=== PATIENT | male | born 1960 | race Caucasian/White ===

== ENCOUNTER → 2020-07-31 15:37 | Outpatient (CLI) | payer OTHER, SELFPAY ==
[2020-07-31 16:22] LABS: Basophils % 0.4 % (0.1-2.0); Eosinophils # 0.2 K/mm3 (0.0-0.4); Eosinophils % 1.7 % (0.1-12.0); Hematocrit 45.4 % (42.0-52.0); Hemoglobin 15.2 g/dL (14.1-18.0); Lymphocytes # 2.5 K/mm3 (0.7-4.5); Lymphocytes % 24.3 % (10-50); Mean Corpuscular HGB Conc 33.5 g/dL (31.8-35.4); Mean Corpuscular Hemoglobin 29.1 pg (27.0-31.2); Mean Corpuscular Volume 86.8 fl (80-94); Mean Platelet Volume 7.6 fl (7.4-10.4); Monocytes # 0.4 K/mm3 (0.1-1.0); Monocytes % 4.3 % (1.7-9.3); Neutrophils % 69.3 % (37.0-80.0); Platelet Count 232 K/mm3 (142-424); Red Blood Count 5.24 M/mm3 (4.60-6.20); Red Cell Distribution Width 13.9 % (11.5-17.5); White Blood Count 10.1 K/mm3 (4.8-10.8)
[2020-07-31 17:51] LABS: Alanine Aminotransferase 16 U/L (12-78); Albumin Level 4.4 g/dl (3.5-5.0); Alkaline Phosphatase 107 U/L (38-126); Anion Gap 13.2 mEq/L (5-15); Aspartate Amino Transferase 24 U/L (17-59); Bilirubin,Indirect 0.4 mg/dL (0.0-0.9); Bilirubin,Total 0.4 mg/dl (0.2-1.3); Bilirubin,Unconjugated 0.5 mg/dL (0.0-1.1); Blood Urea Nitrogen 18 mg/dl (9-20); Calcium 9.6 mg/dl (8.4-10.2); Carbon Dioxide 28 mmol/L (22.0-30.0); Chloride 102 mmol/L (98-107); Chol/HDL Ratio 3.1 (1-3.5); Cholesterol 158 mg/dl (140-200); Estimated Glomerular Filt Rate 77 ml/min (>60); GFR (African American) 93 ML/MIN (>60); Glucose 95 mg/dl (74-100); HDL Cholesterol 51 mg/dl (40-60); Potassium 4.2 mmoL/L (3.5-5.1); Sodium 139 mmol/L (136-145); Total Protein,Serum 8.2 g/dl (6.3-8.2); Triglycerides 107 mg/dl (30-150); VLDL Cholesterol 21 mg/dL (0-40)
[2020-07-31 18:02] LABS: Direct LDL Cholesterol 80.57 mg/dL (100-129)
[2020-07-31 18:06] LABS: Troponin I < 0.01 ng/ml (0.00-0.034)
[2020-07-31 18:19] LABS: Coronavirus 19 IgG Antibody Negative (Negative); Coronavirus 19 IgM Antibody Negative (Negative)
== END ==
PROVIDERS: Visit Provider Urology
DX: Z01.818 Encounter for other preprocedural examination (principal); Z20.822 Contact with and (suspected) exposure to COVID-19; I20.8 Other forms of angina pectoris; R94.31 Abnormal electrocardiogram [ECG] [EKG]; E11.9 Type 2 diabetes mellitus without complications; I11.9 Hypertensive heart disease without heart failure
CPT/HCPCS: 36415; 80048; 80061; 80076; 84484; 85025; 86328

== ENCOUNTER 2020-08-01 07:28 | Day surgery (SDC) | payer OTHER, SELFPAY ==
[2020-08-01] VITALS (12 sets, daily range): BP systolic 115–178; BP diastolic 67–95; PULSE 59–82; RESP 12–21; TEMP 36.9; O2SAT 95–99; BMI 26.9
--- NOTE | 2020-08-01 07:15 | IR_ITS ---
APPROVED REPORT Patient Location: Outpatient Chief Jailer: PILAR Joiner RT (R) PROCEDURES Left heart catheterization Left ventriculogram Selective coronary angiogram INDICATION Angina pectoris class III-IV, Abnormal EKG, Numerous risk factors for coronary disease Informed consent was obtained prior to the procedure. COMPLICATIONS None Estimated Blood Loss: Less than 10 mls TECHNIQUE One percent lidocaine used to anesthetize the right anterior aspect of the wrist. The right radial artery was accessed via the Seldinger technique. A 6 [place] sheath was placed in the right radial artery. 2.5 mg of verapamil, 800 mcg of nitroglycerin, 1mg Lidocaine and 5000 U Heparin were given through the arterial sheath. The trap catheter was also used to perform left heart catheterization, left ventriculogram and selective coronary angiogram. At the end of the procedure the sheath was removed good hemostasis was achieved using Traclet band, patient was transferred to the postop holding area in stable condition. ANGIOGRAPHIC RESULTS The left main artery Normal The left anterior descending artery Has an ostial 10% stenosis followed by a proximal 10 to 20% stenosis with a mid vessel 10% stenosis. The circumflex artery Is a large dominant vessel with mild 10% luminal irregularities The right coronary artery Nondominant with proximal 10% sequential luminal irregularities The ELDER ventriculogram reveals Hyperdynamic 75% The left ventricular end-diastolic pressure 20 mmHg IMPRESSION Mild nonflow limiting coronary disease Hyperdynamic left ventricular function consistent with hypertensive heart disease Elevated LVEDP PLAN 1. Patient's abnormal EKG likely stems from early repolarization secondary to hypertensive heart disease 2. Medical management Electronically signed by : Teja Khan, 08/01/2020 10:31:56
== END 2020-08-01 13:30 | disposition home or self-care (01) ==
LOC: CATHLAB 07:29
PROVIDERS: PCP Nurse Practitioner; Visit Provider Internal Medicine
DX: I25.110 Atherosclerotic heart disease of native coronary artery with unstable angina pectoris (principal); I11.9 Hypertensive heart disease without heart failure; R94.31 Abnormal electrocardiogram [ECG] [EKG]; Z82.49 Family history of ischemic heart disease and other diseases of the circulatory system; Z87.891 Personal history of nicotine dependence
CPT/HCPCS: 93458; 99152; C1725; C1769; J1644; Q9967

== ENCOUNTER → 2020-08-21 10:52 | Outpatient (CLI) | payer OTHER, SELFPAY ==
[2020-08-21 12:09] LABS: Chloride 104 mmol/L (98-107); Sodium 139 mmol/L (136-145)
[2020-08-21 12:12] LABS: Blood Urea Nitrogen 20 mg/dl (9-20); Carbon Dioxide 28 mmol/L (22.0-30.0); Estimated Glomerular Filt Rate 100 ml/min (>60); GFR (African American) 121 ML/MIN (>60)
[2020-08-21 12:13] LABS: Calcium 9.2 mg/dl (8.4-10.2); Glucose 103 mg/dl (74-100)
== END ==
PROVIDERS: Visit Provider Physician Assistant
DX: R06.00 Dyspnea, unspecified (principal); I20.8 Other forms of angina pectoris; E78.5 Hyperlipidemia, unspecified; I10 Essential (primary) hypertension
CPT/HCPCS: 36415; 80048